=== PATIENT | female | born 1940 | race African-American/Black ===

== ENCOUNTER 2018-05-29 11:08 | Emergency (ER) | payer OTHER ==
[~2018-05-29] VITALS: Ht 167.6 cm; Wt 93.0 kg
--- NOTE | 2018-05-29 11:08 | NUR ---
Pt placed in bed 8
[2018-05-29 11:16] VITALS: BP_SYST 147
--- NOTE | 2018-05-29 11:27 | NUR ---
ER at bedside examining patient.
[2018-05-29] MEDS ORDERED: NACL 0.9% 1,000 ML IV ONE (11:30)
--- NOTE | 2018-05-29 11:30 | NUR ---
Patient AAOx4 but forgetful, arriving from home with homehealth aide at bedside. patient c/o sob and painful cough x 3 weeks. patient took two different types of antibiotics for the same cough. patient states it wakes her up and leaves her breathless at times. patient does not have a cough right now. patient does have a history of COPD, Asthma and bilateral mastectomy. no other complaint or injury at this time.
[2018-05-29] MEDS ORDERED: CYAN250014 PO (11:34)
[2018-05-29] MEDS ORDERED: SIMV40TA2 PO (11:34)
[2018-05-29] MEDS ORDERED: MONT10TA25 PO (11:34)
[2018-05-29] MEDS ORDERED: CHOL100062 PO (11:34)
[2018-05-29] MEDS ORDERED: FLUT1BLS3 INH (11:34)
[2018-05-29] MEDS ORDERED: NAPR-688 PO (11:34)
[2018-05-29] MEDS ORDERED: GINK60TA7 PO (11:34)
[2018-05-29] MEDS ORDERED: ALLO100T PO (11:34)
[2018-05-29] MEDS ORDERED: FLUT16SP16 NS (11:34)
[2018-05-29] MEDS ORDERED: ACLI400A2 IH (11:34)
[2018-05-29] MEDS ORDERED: ATEN-168 PO (11:34)
[2018-05-29] MEDS ORDERED: TRAZ-123 PO (11:34)
[2018-05-29] MEDS ORDERED: ALBU8.5H8 INH (11:34)
[2018-05-29] MEDS ORDERED: HYDR25TA4 PO (11:34)
[2018-05-29] MEDS ORDERED: [UNRECOGNIZED DRUG - CODE] PO (11:34)
[2018-05-29] MEDS ORDERED: FURO-150 PO (11:34)
[2018-05-29] MEDS ORDERED: ARI1 PO (11:34)
[2018-05-29] MEDS ORDERED: CEFU250T85 PO (11:34)
[2018-05-29] MEDS ORDERED: ASPI-1155 PO (11:34)
--- NOTE | 2018-05-29 11:34 | NUR ---
Medication reconciliation completed with information provided by patient. Any prior medication reconciliation on file was reviewed and corrected.
[2018-05-29 12:19] LABS: BILIRUBIN,URINE NEGATIVE (NEGATIVE); BLOOD, URINE NEGATIVE (NEGATIVE); CLARITY/URINE CLEAR (CLEAR); COLOR,URINE YELLOW (YELLOW); GLUCOSE,URINE NEGATIVE (NEGATIVE); KETONES,URINE NEGATIVE (NEGATIVE); LEUKOCYTE ESTERASE ,URINE NEGATIVE (NEGATIVE); NITRITE, URINE NEGATIVE (NEGATIVE); PH,URINE 6.5 (5.0-8.0); PROTEIN URINE NEGATIVE (NEGATIVE); UROBILINOGEN,URINE 0.2 (0.2-1.0)
[2018-05-29 12:24] LABS: BASOPHILS # (AUTO) 0.1 K/uL (0.0-0.2); BASOPHILS % (AUTO) 0.9 % (0.0-2.0); EOSINOPHILS # (AUTO) 0.4 K/uL (0.0-0.4); EOSINOPHILS % (AUTO) 7.3 % (0.0-4.0); HEMATOCRIT 33.6 % (36-48); HEMOGLOBIN 11.1 g/dL (12.0-16.0); LYMPHOCYTES # (AUTO) 1.6 K/uL (1.0-5.5); LYMPHOCYTES % (AUTO) 28.3 % (20.5-51.5); MEAN CORPUSCULAR HEMOGLOBIN 29 pg (27-31); MEAN CORPUSCULAR HGB CONC 33 % (32-36); MEAN CORPUSCULAR VOLUME 88 fL (79.0-98.0); MONOCYTES # (AUTO) 0.5 K/uL (0.0-1.0); MONOCYTES % (AUTO) 9.2 % (1.7-9.3); NEUTROPHILS % (AUTO) 54.3 % (40.0-70.0); PLATELET COUNT (AUTO) 186 K/uL (130-430); RED CELL DISTRIBUTION WIDTH 13.8 % (9.0-15.0); WHITE BLOOD COUNT (AUTO) 5.6 K/uL (4.8-10.8)
--- NOTE | 2018-05-29 12:30 | NUR ---
sent to CT
[2018-05-29 12:46] LABS: ALANINE AMINOTRANSFERASE 25 U/L (12-78); ALBUMIN 3.6 g/dL (3.4-4.8); ANION GAP 4 (5-15); ASPARTATE AMINOTRANSFERASE 18 U/L (10-37); CALCIUM 10.1 mg/dL (8.4-11.0); CHLORIDE 102 mmol/L (98-107); CREATININE 1.28 mg/dL (0.55-1.30); GLUCOSE 113 mg/dL (70-99); POTASSIUM 3.6 mmol/L (3.5-5.1); SODIUM SERUM 140 mmol/L (136-145); TOTAL BILIRUBIN 0.3 mg/dL (0.0-1.0); UREA NITROGEN, BLOOD 19 mg/dL (8-21)
[2018-05-29 12:50] LABS: INR 1.1 (0.8-1.2); PROTHROMBIN TIME 10.8 SECS (9.5-12.5)
--- NOTE | 2018-05-29 14:00 | NUR ---
returned from ct in stable condition.
[2018-05-29] MEDS ORDERED: IOHEXOL 350 mgI/mL, 150 ML INFUS..BTL IV ONE (14:29)
[2018-05-29 15:06] VITALS: BP_SYST 145
--- NOTE | 2018-05-29 15:07 | NUR ---
Patient given written and verbal discharge instructions and verbalizes understanding. ER MD discussed with patient the results and treatment provided. Patient in stable condition. ID arm band removed. IV catheter removed intact and dressing applied, no active bleeding. Rx of Prednisone promethazine/dextromethorpan given. Patient educated on pain management and to follow up with PMD. Pain Scale 0/10. Opportunity for questions provided and answered. Medication side effect fact sheet provided.
== END 2018-05-29 15:06 | disposition home or self-care (01) ==
LOC: SED 11:08
DX: R05 Cough (principal); R03.0 Elevated blood-pressure reading, without diagnosis of hypertension; J44.9 Chronic obstructive pulmonary disease, unspecified; Z85.3 Personal history of malignant neoplasm of breast; Z88.5 Allergy status to narcotic agent; Z79.82 Long term (current) use of aspirin; Z79.899 Other long term (current) drug therapy
CPT/HCPCS: 36415; 71045; 71275; 80053; 81003; 83605; 83880; 84484; 85025; 85379; 85610; 85730; 87040; 87086; 93005; 99284; J7030; Q9967